=== PATIENT | male | born 1995 | race African-American/Black ===

== ENCOUNTER 2019-11-06 19:53 | Emergency (ER) | payer SELFPAY ==
[2019-11-06 20:06] VITALS: BP 144/74; PULSE 92; RESP 16; TEMP 40.2; O2SAT 97
[2019-11-06 20:09] VITALS: TEMP 40.3
[2019-11-06] MEDS: IBUPROFEN 400 MG TABLET 800 MG PO (20:09)
[2019-11-06] MEDS: ACETAMINOPHEN 500 MG TABLET PO (20:09)
--- NOTE | 2019-11-06 20:18 | ED.URI ---
HPI - URI/Sore Throat General Chief Complaint: Upper Respiratory Infection Stated Complaint: Flu symptoms Time Seen by Provider: 11/06/19 20:12 Source: patient, family and RN notes reviewed Mode of arrival: ambulatory Limitations: no limitations History of Present Illness HPI Narrative: Patient presents today complaining of headache, body aches, dizziness, chills, fever up to 103.5, cough. Symptoms began this morning and have worsened throughout the day. Denies congestion, rhinorrhea, sore throat. He has tried no medication for symptoms prior to arrival. He is a non-smoker. He did not receive a flu vaccine this season. elicited complaint: fever Related Data Home Medications Medication Instructions Recorded Confirmed No Home Medications 11/06/19 11/06/19 Allergies Allergy/AdvReac Type Severity Reaction Status Date / Time No Known Allergies Allergy Verified 11/06/19 20:02 Review of Systems Review of Systems: Narrative: CONSTITUTIONAL: + Body aches, chills, sweats, fever EYES: Denies visual changes, redness, or discharge. ENT: Denies rhinorrhea, congestion, sore throat, or otalgia. CARDIOVASCULAR: Denies chest pain, palpitations, or edema. RESPIRATORY: Denies dyspnea.+ Cough GASTROINTESTINAL: Denies abdominal pain, nausea, vomiting, or diarrhea. GENITOURINARY: Denies dysuria or hematuria. SKIN: Denies rash, itching, or wounds. MUSCULOSKELETAL: Denies back pain, joint pain, or myalgia. NEUROLOGIC: Denies numbness, tingling, or weakness.+ Headache, dizziness PSYCH: Denies depression or anxiety. PMFSH Comments At time of signature, I have reviewed and agree with nursing past medical, surgical, social and family history unless otherwise noted. Please see nursing chart for further information. There is no relevant family history pertinent to the presenting complaint Exam Narrative: Exam Narrative: GENERAL: ill-appearing, well-nourished, and in no acute distress. HEAD: Normocephalic, atraumatic. EYES: EOMI. No redness or drainage. Conjunctivae normal. ENT: Mucous membranes pink and moist. Nares clear. No rhinorrhea. TMs normal bilaterally. Throat normal. Uvula midline. NECK: Normal AROM. Supple. No lymphadenopathy. CHEST: No respiratory distress. Clear to auscultation. HEART: Regular rate and rhythm. No murmur appreciated. Normal peripheral pulses. EXTREMITIES: Normal range of motion. No edema. SKIN: Warm, dry, no rash. NEURO: No focal deficits. Alert and oriented x3. Gait steady. PSYCH: Normal affect. No signs of depression or anxiety. Course Vital Signs Vital signs: Vital Signs Temperature 104.3 F H 11/06/19 20:06 Pulse Rate 92 11/06/19 20:06 Respiratory Rate 16 11/06/19 20:06 Blood Pressure 144/74 H 11/06/19 20:06 Pulse Oximetry 97 11/06/19 20:06 Temperature 104.5 F H 11/06/19 20:21 Pulse Rate 92 11/06/19 20:06 Respiratory Rate 16 11/06/19 20:06 Blood Pressure 144/74 H 11/06/19 20:06 Pulse Oximetry 97 11/06/19 20:06 Reviewed. Pt has been instructed to follow up with his PCP regarding his elevated blood pressure today. Patient has been medicated with Tylenol and ibuprofen at [facility] today. MDM - URI/Sore Throat Differential Diagnosis Differential diagnosis: Likely upper respiratory infection, viral infection and influenza Lab Data Attestation: I reviewed the patient's lab results. Labs: Influenza A Screen Positive Reference Range: Negative Influenza B Screen Negative Reference Range: Negative Critical Care Time Critical Care Time Critical Care Time: No Discharge Plan Discharge Clinical Impression: Influenza A Patient Disposition: Home, Self-Care Condition: Stable Instructions: Influenza (DC) Additional Instructions: Your swab is positive for influenza A today. Please treat your fever and body aches with Tylenol and ibuprofen. You will be contagious for another 4 days. Follow-up wi
[2019-11-06 20:21] VITALS: TEMP 40.3
== END 2019-11-06 20:21 | disposition home or self-care (01) ==
PROVIDERS: Emergency Provider Nurse Practitioner
DX: J10.1 Influenza due to other identified influenza virus with other respiratory manifestations (principal)
CPT/HCPCS: 87804; 99202; A9270; G0463

== ENCOUNTER 2021-07-28 09:19 | Emergency (ER) | payer OTHER, SELFPAY ==
[2021-07-28 09:29] VITALS: BP 139/88; PULSE 57; RESP 16; TEMP 36.8; O2SAT 99
--- NOTE | 2021-07-28 09:51 | ED.LOWEXIN ---
HPI - Extremity Injury (Lower) General Chief Complaint: Extremity Injury, Lower Stated Complaint: Left leg Pain Time Seen by Provider: 07/28/21 09:54 Source: patient, RN notes reviewed and old records reviewed Mode of arrival: ambulatory Limitations: no limitations History of Present Illness HPI Narrative: 26-year-old male who presents to [facility] with complaints of discomfort to his left posterior thigh after playing basketball yesterday at the [facility] with feeling a pop like sensation in his upper posterior thigh. Patient states that 2-3 weeks ago he was playing basketball and felt a pop in his posterior proximal thigh and it did get better after awhile. Patient is able to ambulate on left leg with mild limp noted, able to bend hip and knee of left leg with no acute pain stated. Patient denies any tingling or numbness to is left leg or foot, strong pedal and posterior tibial pulses present to bilateral feet. MD complaint: thigh injury Onset (ago): day(s) (1) Injury: Left: thigh (posterior) Related Data Allergies Allergy/AdvReac Type Severity Reaction Status Date / Time No Known Allergies Allergy Verified 07/28/21 09:50 Review of Systems Review of Systems: CONSTITUTIONAL: Denies fever, chills, or sweats. EYES: Denies visual changes, redness, or discharge. ENT: Denies rhinorrhea, congestion, sore throat, or otalgia. CARDIOVASCULAR: Denies chest pain, palpitations, or edema. RESPIRATORY: Denies cough or dyspnea. GASTROINTESTINAL: Denies abdominal pain, nausea, vomiting, or diarrhea. GENITOURINARY: Denies dysuria or hematuria. SKIN: Denies rash or itching. MUSCULOSKELETAL: Denies back pain,positive for some posterior proximal left thigh discomfort. . NEUROLOGIC: Denies headache, numbness, or weakness. PSYCHIATRIC: Denies anxiety or depression. All systems reviewed & are unremarkable except as noted in HPI and below PMFSH Past Medical History Medical History (Updated 07/30/21 @ 14:49 by Nitza Huerta NP) Ganglion cyst No significant medical problems Surgical History Surgical History (Updated 07/30/21 @ 14:43 by Nitza Huerta NP) No history of previous surgery Family History Family History Mother Hypertension Father Hypertension Malignant neoplasm of prostate Sibling Hypertension Social History Social History (Updated 07/30/21 @ 14:37 by Nitza Huerta NP) Smoking status: Never smoker Alcohol intake: current Alcohol use details: social use Substance use: unknown Living arrangements: with family Gender identity (if verbalized by the patient): Male Comments At time of signature, agree with nursing past medical, surgical, social and family history. There is no relevant family history pertinent to the presenting complaint Exam Narrative: GENERAL: Well-appearing, well-nourished, and in no acute distress. HEAD: Normocephalic, atraumatic. EYES: PERRLA and EOMI. ENT: Nares clear, no rhinorrhea or epistaxis. Mucous membranes moist.TM's normal with good light reflex, throat pink with no exudates or lesions,no tonsil enlargement. NECK: Supple. no lymphadenopathy CHEST: Clear to auscultation. No respiratory distress.SAO2 99% on room air HEART: Regular rate and rhythm. No murmur heard. Normal peripheral pulses. ABDOMEN: Soft, nontender, nondistended, normal active bowel sounds. EXTREMITIES: Normal range of motion. No edema. Positive for some tenderness to left posterior proximal thigh region especially on palpation. Patient is able to bend hip and knee of left leg with no acute pain, states some increase in discomfort with ambulation, rates pain 8/10 described as shooting type of pain. SKIN: Warm, dry, no rash. NEURO: No focal deficits. Alert and oriented x3. Course Vital Signs Vital signs: Vital Signs Temperature 36.8 C 07/28/21 09:29 Pulse Rate 57 L 07/28/21 09:29 Respiratory Rate 16 07/28/21 09:29 Blood Pressure 139/8
== END 2021-07-28 10:20 | disposition home or self-care (01) ==
PROVIDERS: Emergency Provider Registered Nurse
DX: S76.912A Strain of unspecified muscles, fascia and tendons at thigh level, left thigh, initial encounter (principal); X58.XXXA Exposure to other specified factors, initial encounter; Y93.67 Activity, basketball
CPT/HCPCS: 99213; G0463

== ENCOUNTER 2022-02-15 05:06 | Day surgery (SDC) | payer SELFPAY ==
[2022-02-15] VITALS (12 sets, daily range): BP systolic 107–171; BP diastolic 53–116; PULSE 55–68; RESP 10–20; TEMP 36.6; O2SAT 96–100
--- NOTE | ~2022-02-15 | US_ITS ---
US scrotum doppler DATE: 02/15/2022 06:40 INDICATION: Right testicular torsion TECHNIQUE: Real-time and color flow imaging and Doppler analysis of the scrotal contents COMPARISON: None FINDINGS: The right testicle measures 5 x 3.6 x 2.6 cm. There is absence of vascularity to the right testicle compatible with right-sided testicular torsion. Left testicle measures 4.6 x 2.6 2.1 cm. There is left testicular blood flow. 1 cm right epididymal cyst. No hydrocele or varicocele is identified on either side. IMPRESSION: Right testicular torsion Reviewed, dictated and finalized at [facility] Reviewed, dictated and finalized at [facility] IMPRESSION: Right testicular torsion
[2022-02-15] MEDS: fentaNYL CITRATE INJ (*CRX) 100 MCG/2 ML VIAL IV PUSH ×2 (05:26→05:45)
[2022-02-15] MEDS: ONDANSETRON INJ 4 MG/2 ML VIAL IV PUSH (05:31)
--- NOTE | 2022-02-15 06:16 | ED.MALEGU ---
HPI - Male Genitourinary General Chief complaint: Urogenital-Male Stated complaint: right testicle pain Time Seen by Provider: 02/15/22 05:21 History of Present Illness HPI Narrative: 26-year-old male presents with sudden onset right testicular pain extremely severe, nausea and vomiting. Never had this in the past. Related Data Allergies Allergy/AdvReac Type Severity Reaction Status Date / Time No Known Allergies Allergy Verified 02/15/22 05:09 Review of Systems Review of Systems: CONST: No fever. HEENT: No sore throat C/V: No chest pain RESP: No difficulty breathing GI: nausea, vomiting BACK: No back pain : Right testicular pain. M/S: No joint pain. SKIN: No rash. NEURO: [No headache or focal numbness or weakness] PSYCH: [No depression] [facility] Past Medical History Medical History Ganglion cyst No significant medical problems Surgical History Surgical History No history of previous surgery Family History Family History Mother Hypertension Father Hypertension Malignant neoplasm of prostate Sibling Hypertension Social History Social History Smoking status: Never smoker Alcohol intake: current Alcohol use details: social use Substance use: unknown Gender identity (if verbalized by the patient): Male Exam Narrative: EXAMINATION OF ORGAN SYSTEMS/BODY AREAS: Constitutional: Vital signs per nursing GENERAL: Writhing in pain, retching HEAD: Normal with no signs of head trauma. EYES: EOMI, conjunctiva normal ENT: Hearing grossly intact LUNGS: Nonlabored breathing. HEART: [Regular rate and rhythm] ABD: [Soft], [nontender to palpation] EXT: Normal range of motion : Severe pain R testicle that is swollen and high riding and hard, no cremasteric reflex SKIN: [No rashes or lesions.] NEURO: [ No gross focal sensory or strength deficits.] Course Course Emergency Course: 36-year-old male presenting with severe right-sided testicular pain, vital signs stable, exam shows high riding swollen right testicle extremely concerning for torsion, I did immediately call the urologist and ultrasound, he is given pain medication and I did per urologist recommendation attempt to detorsed the testicle manually. This is unsuccessful, ultrasound did arrive and found torsion, urologist did arrive and will be taking the patient to the OR. Vital Signs Vital signs: Vital Signs Temperature 97.8 F 02/15/22 05:07 Pulse Rate 62 02/15/22 05:07 Respiratory Rate 20 02/15/22 05:07 Blood Pressure 140/116 H 02/15/22 05:07 Pulse Oximetry 100 02/15/22 05:07 Temperature 97.8 F 02/15/22 05:07 Pulse Rate 60 02/15/22 06:16 Respiratory Rate 16 02/15/22 06:16 Blood Pressure 150/94 H 02/15/22 06:16 Pulse Oximetry 100 02/15/22 06:16 Critical Care Time Critical Care Time Critical Care Time: Yes Total Critical Care Time: 31
--- NOTE | 2022-02-15 06:44 | PC.NURSE ---
Dr Bender in to see pt at bedside
--- NOTE | 2022-02-15 07:00 | P.PNAN_ITS ---
Anes - Eval Pre Procedure Procedure: Testicular Torsion reduction poss orchiectomy Date/Time: 02/15/22 07:00 Surgeon: Yulia Preop Diagnosis: Testicular Torsion Pre Op Diagnosis: right testicle pain Patient Data Age: 26 Gender: M Height: 1.75 m Weight: 81.8 kg Last Vital Signs Temp 97.8 F 02/15/22 05:07 Pulse 60 02/15/22 06:16 Resp 16 02/15/22 06:16 BP 150/94 H 02/15/22 06:16 Pulse Ox 100 02/15/22 06:16 Allergies Allergy/AdvReac Type Severity Reaction Status Date / Time No Known Allergies Allergy Verified 02/15/22 05:09 Home Medications Medication Instructions Recorded Confirmed Type cyclobenzaprine 10 mg PO HS PRN #10 tablet 07/28/21 Rx ibuprofen 600 mg PO Q6H PRN #20 tablet 07/28/21 Rx Patient hx anesthesia problems: none Family hx anesthesia problems: none Results Review: All pre-operative results and documents have been reviewed as part of the pre-operative evaluation. [facility] Past Medical History Medical History Ganglion cyst No significant medical problems Surgical History Surgical History No history of previous surgery Family History Family History Mother Hypertension Father Hypertension Malignant neoplasm of prostate Sibling Hypertension Social History Social History Smoking status: Never smoker Alcohol intake: current Alcohol use details: social use Substance use: unknown Gender identity (if verbalized by the patient): Male Exam Day of Procedure 02/15/22 07:00 Patient weight: overweight Heart: regular rate and rhythm Lungs: clear to auscultation Airway: Mallampati scale class II Neurological: alert and oriented
--- NOTE | 2022-02-15 07:13 | WPDURCON ---
Assessment and Plan Assessment and plan (1) Right testicular torsion: Code(s): N44.00 - Torsion of testis, unspecified Status: Acute Assessment and Plan: I will take him emergently to the operating room for a scrotal exploration bilateral orchidopexy. Possible right orchiectomy. He understands risks of bleeding, infection, loss of testicle. He agrees to proceed Urology Consult Note HPI Date Seen: 02/15/22 Requesting Physician: Hair Bender MD Primary Care Provider: CHRONIC DISEASE MANAGER PHYSICIAN Consult Narrative Narrative: Presley Kirkpatrick is a 26 year old male seen at the request of the emergency room at [facility]. He had acute onset of right testicular pain at about 430 this morning. It was associated with nausea and vomiting. He presented the emergency room. Scrotal ultrasound was done which shows absent flow in the right testicle. There is normal vascularity to the left. He be taken the operating room for a bilateral orchidopexy possible right orchiectomy. I let him know that right orchiectomy is unlikely, but possible, given the short amount of time since the onset of symptoms. Review of Systems Review of Systems: All systems reviewed & are unremarkable except as noted in HPI and below PMFSH Past Medical History Medical History Ganglion cyst No significant medical problems Surgical History Surgical History No history of previous surgery Family History Family History Mother Hypertension Father Hypertension Malignant neoplasm of prostate Sibling Hypertension Social History Social History Smoking status: Never smoker Alcohol intake: current Alcohol use details: social use Substance use: unknown Gender identity (if verbalized by the patient): Male Meds Home Medications and Allergies Home Medications Medication Instructions Recorded Confirmed Type cyclobenzaprine 10 mg PO HS PRN #10 tablet 07/28/21 Rx ibuprofen 600 mg PO Q6H PRN #20 tablet 07/28/21 Rx Allergies Allergy/AdvReac Type Severity Reaction Status Date / Time No Known Allergies Allergy Verified 02/15/22 05:09 Vital Signs Vital Signs - 24 hr 02/15/22 05:07 02/15/22 05:40 02/15/22 05:46 Temperature 97.8 F Pulse Rate 62 58 L 55 L Respiratory Rate 20 12 14 Blood Pressure 140/116 H 171/111 H 155/90 H Pulse Oximetry 100 100 96 02/15/22 06:16 Temperature Pulse Rate 60 Respiratory Rate 16 Blood Pressure 150/94 H Pulse Oximetry 100 Exam Const: General: cooperative, healthy appearing, acute distress and well groomed; No confusion Nutritional Appearance: average body habitus Orientation/consciousness: patient oriented x3 Limitations: no limitations HENMT: Head: normal to inspection Ears: hearing grossly normal bilaterally General nose exam: Normal external nose present Face and sinus: normal facial exam Mouth: Yes Normal oral and palatal mucosa present Eyes: General: appearance normal, both eyes and all related structures Neck: Neck: normal visual inspection and full ROM Resp: Effort & Inspection: normal respiratory effort, able to speak in complete sentences and no cough GI: Inspection: normal to inspection, non-distended and no incisions : Male General Exam: Yes normal external exam, No ecchymosis and No edema Penis: Yes normal penis, Yes circumcised and No edematous Meatus: meatus normal Scrotum: scrotum normal Testes: abnormal testicular lie (High riding right testicle), testicular tenderness and high-riding testicle Back/Spine/Pelvis: Back: no CVA tenderness Skin: General skin exam: normal color and no rashes or lesions noted Neuro: General: patient oriented x3, tone normal and moves all extremities Extrem: General: normal to i
--- NOTE | 2022-02-15 07:20 | WPDHPUPDATE1 ---
History and Physical Update Update Date/Time: 02/15/22 07:20 History and Physical has been reviewed, including an updated exam of the patient. There are NO changes in the patient's condition. Risks, benefits, and alternatives have been discussed and questions answered. Patient agrees to proceed with procedure.
[2022-02-15] MEDS: fentaNYL CITRATE INJ (*CRX) 100 MCG/2 ML VIAL 50 MCG IV PUSH (07:24)
--- NOTE | 2022-02-15 08:11 | P.PNAN_ITS ---
Anes - Initial Pre Proc Eval Procedure: Operation Date: 02/15/22 08:00 Proposed Procedures p Orchiopexy - Hair Bender MD Date/Time: 02/15/22 08:11 Surgeon: Hair Bender MD Pre Op Diagnosis: right testicle pain Patient Data Age: 26 Gender: M Height: 1.75 m Weight: 81.8 kg Last Vital Signs Temp 36.6 C 02/15/22 05:07 Pulse 59 L 02/15/22 07:22 Resp 20 02/15/22 07:22 BP 152/102 H 02/15/22 07:22 Pulse Ox 99 02/15/22 07:22 Allergies Allergy/AdvReac Type Severity Reaction Status Date / Time No Known Allergies Allergy Verified 02/15/22 05:09 Home Medications Medication Instructions Recorded Confirmed Type cyclobenzaprine 10 mg PO HS PRN #10 tablet 07/28/21 Rx ibuprofen 600 mg PO Q6H PRN #20 tablet 07/28/21 Rx Patient hx anesthesia problems: none Family hx anesthesia problems: none Results Review: All pre-operative results and documents have been reviewed as part of the pre-operative evaluation. [facility] Past Medical History Medical History Ganglion cyst No significant medical problems Surgical History Surgical History No history of previous surgery Family History Family History Mother Hypertension Father Hypertension Malignant neoplasm of prostate Sibling Hypertension Social History Social History Smoking status: Never smoker Alcohol intake: current Alcohol use details: social use Substance use: unknown Gender identity (if verbalized by the patient): Male Anes - Eval Final PreProcedure Day of Procedure 02/15/22 08:11 Patient weight: normal Heart: regular rate and rhythm Lungs: clear to auscultation Airway: Mallampati scale class 1 Neurological: alert and oriented Last oral intake: >/= 8 hours ASA classification: I Emergent: yes Anesthetic plan: proceed Anesthesia type and monitoring: general LMA and standard monitoring Results Review: All pre-operative results and documents have been reviewed as part of the pre-operative evaluation. Informed Consent: The patient's anesthetic plan and its attendant risks and benefits were discussed with the patient/family/POA. Questions were solicited and answers provided to the satisfaction of the patient/family/POA.
[2022-02-15] MEDS: ceFAZolin SODIUM 1 GM VIAL 2 GM IV PUSH (08:26)
[2022-02-15] MEDS: LACTATED RINGERS 1,000 ML 30 ML IV CONT (08:30)
[2022-02-15] MEDS: LIDO 1%/EPINEPHRINE/PF 1:200,000 30 ML VIAL XX (08:47)
--- NOTE | 2022-02-15 08:54 | P.OP_ITS ---
Procedure Note - Detailed Date of Procedure 02/15/22 Pre-op Diagnosis Right testicular torsion Post-op Diagnosis Same Procedure Performed Scrotal exploration with bilateral orchidopexy Surgeon Hair Bender MD Anesthesia General Indications This is a gentleman came to the ER with acute onset of right scrotal pain. Ultrasound documented no flow. He is urgently taken to the operating room for the above procedure. Understood risks of bleeding, infection, loss of testicle, other perioperative an intraoperative and postoperative complications. He agreed to proceed. Findings Right testicle twisted x2. Testicle appeared viable. Bilateral orchiopexy perf ormed Description of Procedure He has correctly identified. Informed consent obtained. From the operating room. He was given general anesthesia. He was placed in supine position. Penis and scrotum were prepped and draped in a sterile fashion. Time-out performed. I made incision on the midline scrotal raphae say. I dissected down through the dartos tissues. I entered the tunica and located the testicle. The testicle was dusky. There was 2 twists in the skin testicular cord. This was untwisted a by rotating the testicle counter-clockwise. I then wrapped the testicle in a moist Ray-Brittaney while I went to the contralateral hemiscrotum. I dissected out the dartos tissues and delivered the right testicle. It was viable and normal. I performed a left orchidopexy. I used permanent Ethibond suture. I pexed the testicle inferiorly, medially, laterally. I then turned my attention towards the right testicle. It appeared viable it it pinked up with reduction of the torsion. I pexed this testicle at the base of the scrotum as well as medial and laterally. Again I used a permanent Ethibond suture. I then closed dartos layer with a running 2-0 Vicryl suture. I closed the skin with a 4-0 Vicryl suture in a subcuticular manner. Local anesthesia was applied as well as the was awakened transferred to PACU in stable condition Estimated Blood Loss 1 Drains No Packing No Pathology None sent Complications No immediate complications Condition Stable Disposition PACU
[2022-02-15] MEDS: oxyCODONE HCL (*CRX) 5 MG TAB IR PO (09:58)
== END 2022-02-15 10:30 | disposition home or self-care (01) ==
LOC: ANHED 06:08 → ANHSURGERY 07:08
PROVIDERS: Emergency Provider Emergency Medicine; Visit Provider Urology
PROC: (CPT 54640; principal; 2022-02-15 08:00)
DX: N44.00 Torsion of testis, unspecified (principal)
CPT/HCPCS: 54640; 76870; 93976; 96374; 96375; 99285; A9270; J0690; J1100; J2001; J2060; J2250; J2270; J2405; J2704; J3010; J7120

== ENCOUNTER 2022-02-22 11:31 | Emergency (ER) | payer SELFPAY ==
--- NOTE | 2022-02-22 11:39 | ED.MALEGU ---
HPI - Male Genitourinary General Chief complaint: Urogenital-Male Stated complaint: painful genital area Time Seen by Provider: 02/22/22 11:39 Source: patient, RN notes reviewed and old records reviewed Mode of arrival: ambulatory Limitations: no limitations History of Present Illness HPI Narrative: 26-year-old male presents to the [facility] with complaints of painful genital area, was taken to surgery for testicular torsion 1 week ago 02/15. Surgery performed by Dr. Bender Since yesterday patient reports some increased discharge and pain, today had an increased of swelling to the area. Denies fevers. No abdominal pain or chest MD Complaint: testicle pain Related Data Allergies Allergy/AdvReac Type Severity Reaction Status Date / Time No Known Allergies Allergy Verified 02/15/22 05:09 Review of Systems Review of Systems: All systems reviewed & are unremarkable except as noted in HPI and below Constitutional: Constitutional: Reports no additional constitutional complaints, Denies chills and Denies fever(s) Eyes: Eyes: Reports no additional eye complaints ENT: Reports system reviewed and no additional complaints, except as documented Cardiovascular: Cardiovascular: Reports no additional cardiovascular complaints Respiratory: Respiratory: Reports no additional respiratory complaints Gastrointestinal: Gastrointestinal: Reports no additional gastrointestinal complaints and Denies abdominal pain Genitourinary: Genitourinary: Reports as per HPI, Reports genital pain, Reports scrotal swelling and Reports testicular pain Musculoskeletal: Musculoskeletal: Reports no additional musculoskeletal complaints Integumentary/Breasts: Skin/Breast: Reports system reviewed and no additional complaints, except as docu Neurologic: Reports system reviewed and no additional complaints, except as documented Psychiatric: Psychiatric: Reports no additional psychiatric complaints Allergic/Immunologic: Allergic/Immunologic: Reports no additional allergic/immunologic complaints [facility] Past Medical History Medical History (Updated 02/22/22 @ 12:06 by Bev Yeung APRN) Ganglion cyst No significant medical problems Right testicular torsion Surgical History Surgical History No history of previous surgery Family History Family History Mother Hypertension Father Hypertension Malignant neoplasm of prostate Sibling Hypertension Social History Social History Smoking status: Never smoker Alcohol intake: current Alcohol use details: social use Substance use: unknown Gender identity (if verbalized by the patient): Male Comments At the time of my signature, I reviewed and agree with the nursing past medical, surgical, social, and family history. There is no relevant family history pertinent to the patient complaint. Exam Const: General: healthy appearing, alert, acute distress (pain) mild, uncomfortable and well groomed Nutritional Appearance: well nourished Orientation/consciousness: patient oriented x3 Limitations: no limitations HENMT: Head: normal to inspection Ears: external ears normal Face and sinus: normal facial exam Eyes: Pupils: Equal, round and reactive pupils present Neck: Neck: normal visual inspection, no lymphadenopathy and no meningeal signs Chest: Chest palpation & inspection: normal inspection of the chest Resp: Effort & Inspection: normal respiratory effort and no use of accessory muscles Auscultation: clear to auscultation bilaterally, no crackles, no rales, no rhonchi and no wheezes Cardio: Rate: regular rate Rhythm: regular rhythm GI: GI Palp: Yes Soft to palpation and No Tenderness to palpation present (GI) : General: Yes no CVA tenderness Male General Exam: No ecchymosis Scrotum: scrotal swelling bilateral Testes
[2022-02-22 11:42] VITALS: BP 125/63; PULSE 56; RESP 16; TEMP 36.5; O2SAT 99
--- NOTE | 2022-02-22 12:00 | PC.NURSE ---
genital area visual exam done with internal review and audit compliance and rn at bedside. no open area noted at the time of exam. swelling noted and small amount of red drainage noted to dressing.
== END 2022-02-22 11:47 | disposition short-term general hospital (02) ==
LOC: EXPCOLL 11:37
PROVIDERS: Emergency Provider Nurse Practitioner
DX: N50.89 Other specified disorders of the male genital organs (principal); N50.812 Left testicular pain; N50.811 Right testicular pain
CPT/HCPCS: 99212; G0463

== ENCOUNTER 2022-02-22 12:07 | Emergency (ER) | payer SELFPAY ==
--- NOTE | ~2022-02-22 | US_ITS ---
EXAMINATION: US scrotum doppler DATE: 02/22/2022 13:12 INDICATION: Postoperative scrotal pain following surgery for testicular torsion TECHNIQUE: Testicular sonogram utilizing grayscale and Doppler COMPARISON: 02/15/2022 FINDINGS: The right testis measures 4.8 x 3.0 x 2.6 cm. The left testis measures 4.6 x 2.6 x 2.8 cm. Symmetric normal grayscale appearance to both testes. Relatively symmetric normal vascular flow to both testes with both arterial and venous waveforms identified in both the left and right testis. 1.2 cm anechoic right epididymal cyst. The right epididymis is otherwise normal with normal vascular flow. The left epididymis is normal with normal vascular flow. There is no varicocele or hydrocele. There is scrotal skin thickening. Hyperechoic shadowing likely surgical clip positioned in the scrotum near the midli ne between the 2 testis. IMPRESSION: 1. Expected appearance with normal symmetric grayscale appearance of the testis and symmetric vascul ar flow on color Doppler post recent surgery for prior right testicular torsion. Reviewed, dictated and finalized at location A. IMPRESSION: 1. Expected appearance with normal symmetric grayscale appearance of the testi s and symmetric vascular flow on color Doppler post recent surgery for prior ri ght testicular torsion.
[2022-02-22 12:09] VITALS: BP 146/79; PULSE 51; RESP 18; TEMP 36.2; O2SAT 100
--- NOTE | 2022-02-22 12:48 | ED.RECABL ---
HPI - Recheck/Abnormal Lab/Rx General Chief Complaint: Recheck/Abnormal Lab/Rx Stated Complaint: post surgery pain Time Seen by Provider: 02/22/22 12:19 Source: patient and RN notes reviewed Mode of arrival: ambulatory Limitations: no limitations History of Present Illness HPI narrative: This is a 26 year old male who presents for evaluation testicular pain and wound drainage s/p bilateral orchiopexy for right testicular torsion on 02/15/22. Patient had surgery by Dr. Bender on 02/15/22. He noticed some drainage to his testicular incision yesterday. He states he noticed dried blood with possible pus when he cleaned his wound yesterday. He also states he has worsening pain and swelling yesterday. Today his swelling has improved and he also states his pain has improved. He denies fever, nausea, vomiting. Related Data Allergies Allergy/AdvReac Type Severity Reaction Status Date / Time No Known Allergies Allergy Verified 02/15/22 05:09 Review of Systems Review of Systems: All systems reviewed & are unremarkable except as noted in HPI and below Constitutional: Constitutional: Denies chills and Denies fever(s) Cardiovascular: Cardiovascular: Denies chest pain Respiratory: Respiratory: Denies cough and Denies dyspnea Genitourinary: Genitourinary: Denies hematuria and Denies oliguria [facility] Past Medical History Medical History (Updated 02/22/22 @ 14:31 by Ariadna Cash MD) Ganglion cyst No significant medical problems Right testicular torsion Surgical History Surgical History (Updated 02/22/22 @ 12:53 by Ariadna Cash MD) S/P orchiopexy Family History Family History Mother Hypertension Father Hypertension Malignant neoplasm of prostate Sibling Hypertension Social History Social History Smoking status: Never smoker Alcohol intake: current Alcohol use details: social use Substance use: unknown Gender identity (if verbalized by the patient): Male Exam Const: General: no acute distress and alert Orientation/consciousness: patient oriented x3 HENMT: Head: normocephalic and atraumatic Mouth: Yes Normal oral and palatal mucosa present, Yes lip normal, Yes tongue normal and Yes moist mucous membranes Eyes: EOM: EOMs intact bilaterally Resp: Effort & Inspection: normal respiratory effort GI: GI Palp: Yes Soft to palpation, No Tenderness to palpation present (GI) and No Guarding due to palpation present (GI) Auscultation: normal bowel sounds : Penis: Yes normal penis and Yes uncircumcised Other: mid scrotal incision, scabbing along incision, small open area posteriorly, no drainage Neuro: General: patient oriented x3 and moves all extremities Extrem: General: normal to inspection Course Consultations Consultation #1: I spoke with urology international organizer. He states to have patient to perform wet to dry dressing. No oral antibiotics needed at this time. He will have office to call tomorrow to arrange follow up this week. Date: 02/22/22 Time: 14:28 Vital Signs Vital signs: Vital Signs Temperature 97.2 F L 02/22/22 12:09 Pulse Rate 51 L 02/22/22 12:09 Respiratory Rate 18 02/22/22 12:09 Blood Pressure 146/79 H 02/22/22 12:09 Pulse Oximetry 100 02/22/22 12:09 Temperature 97.2 F L 02/22/22 12:09 Pulse Rate 51 L 02/22/22 12:09 Respiratory Rate 18 02/22/22 12:09 Blood Pressure 146/79 H 02/22/22 12:09 Pulse Oximetry 100 02/22/22 12:09 MDM - Recheck/Abnormal Lab/Rx Medical Records Attestation: I reviewed the patient's medical records. Lab Data Attestation: I reviewed the patient's lab results. Result diagrams: 02/22/22 13:52 02/22/22 13:52 Labs: Lab Results 02/22/22 02/22/22 Range/Units 13:52 13:52 WBC 3.8 L (4.5-10.0) K/mm3 RBC 5.05 (4.6-6.20) M/mm3 Hgb 15.3 (14.0-18.0) g/
--- NOTE | 2022-02-22 13:15 | PC.NURSE ---
No drainage noted from scrotum wound when Dr. Cash assessed wound.
[2022-02-22 14:03] LABS: Basophils Percent Auto 0.8 % (0.2-1.2); Eosinophils Absolute Auto 0.1 K/mm3 (0-0.3); Eosinophils Percent Auto 2.1 % (0-4.4); Hematocrit 46.6 % (42.0-52.0); Hemoglobin 15.3 g/dL (14.0-18.0); Immature Granulocyte Absolute 0.01 K/mm3 (0.00-0.031); Immature Granulocyte Percent A 0.3 % (0-0.5); Lymphocytes Absolute Auto 1.71 K/mm3 (0.9-3.2); Lymphocytes Percent Auto 45.2 % (18.3-44.2); Mean Corpuscular HGB Conc 32.8 g/dl (32-36); Mean Corpuscular Hemoglobin 30.3 pg (26-34); Mean Corpuscular Volume 92.3 fl (80-100); Mean Platelet Volume 9.7 fl (7.4-10.4); Monocytes Absolute Auto 0.3 K/mm3 (0.1-0.6); Monocytes Percent Auto 8.7 % (2.6-8.5); Neutrophils Absolute Auto 1.6 K/mm3 (1.3-6.7); Neutrophils Percent Auto 42.9 % (45.5-73.1); Platelet Count Result 270 k/mm3 (150-375); Red Blood Count 5.05 M/mm3 (4.6-6.20); Red Cell Distribution Width 12.4 % (11.5-14.5); White Blood Count 3.8 K/mm3 (4.5-10.0)
[2022-02-22 14:17] LABS: Alanine Aminotransferase 17 U/L (6-50); Albumin Level 4.7 g/dL (3.5-5.1); Alkaline Phosphatase 65 U/L (38-126); Anion Gap 8 mmol/L (8-16); Aspartate Amino Transferase 29 U/L (17-59); Bilirubin,Total 0.7 mg/dL (0.2-1.3); Blood Urea Nitrogen 14 mg/dL (9-20); Carbon Dioxide 26 mmol/L (22-30); Chloride 102 mmol/L (98-107); Estimated CRCL calculation 84 ml/min; Estimated Glomerular Filt Rate > 60; Glucose 81 mg/dL (65-110); Potassium 4.3 mmol/L (3.4-5.0); Sodium 136 mmol/L (137-145)
== END 2022-02-22 15:12 | disposition home or self-care (01) ==
PROVIDERS: Emergency Provider General Practice
DX: Z48.00 Encounter for change or removal of nonsurgical wound dressing (principal)
CPT/HCPCS: 36415; 76870; 80053; 85025; 93976; 99284

== ENCOUNTER 2022-09-01 14:46 | Emergency (ER) | payer OTHER, SELFPAY ==
[2022-09-01 15:08] VITALS: BP 145/81; PULSE 69; RESP 16; TEMP 37.4; O2SAT 99
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
== END 2022-09-01 16:01 | disposition home or self-care (01) ==
PROVIDERS: Emergency Provider Nurse Practitioner Family
DX: R42 Dizziness and giddiness (principal); F12.90 Cannabis use, unspecified, uncomplicated
CPT/HCPCS: 99213; G0463

== ENCOUNTER 2023-03-29 09:26 | Emergency (ER) | payer OTHER, SELFPAY ==
--- NOTE | ~2023-03-29 | XR_ITS ---
EXAMINATION: XR shoulder LT min 2V INDICATION: Left shoulder pain TECHNIQUE: Four views of the left shoulder are submitted. COMPARISON: None FINDINGS: Normal alignment. No fracture. Glenohumeral and acromioclavicular joint spaces are normal. Soft tissues are unremarkable. IMPRESSION: 1. No acute osseous abnormality. Reviewed, dictated and finalized at location []
[2023-03-29 09:32] VITALS: BP 138/60; PULSE 71; RESP 16; TEMP 36.9; O2SAT 100
--- NOTE | 2023-03-29 09:57 | ED.UPPEXIN ---
HPI - Extremity Injury (Upper) General Chief Complaint: Extremity Injury, Upper Stated Complaint: Pain in left shoulder Time Seen by Provider: 03/29/23 09:56 Source: patient and RN notes reviewed Mode of arrival: ambulatory Limitations: no limitations History of Present Illness HPI narrative: 27-year-old male presents with concern for left shoulder injury. Reports while he was playing basketball yesterday it was hyperextended behind his back. He reports the pain is at the joint, it is not tender to touch, but hurts when he rotates the arm or elevates the arm. He applied ice yesterday. Denies taking [id number] medication. Denies decreased strength or sensation in the shoulder, arm MD complaint: injury to: left and shoulder Related Data Allergies Allergy/AdvReac Type Severity Reaction Status Date / Time No Known Allergies Allergy Verified 03/29/23 09:34 Review of Systems Review of Systems: CONSTITUTIONAL: Denies malaise, chills, sweats, or fever. SKIN: Denies rash or itching, open skin, laceration, abrasion, redness, warmth, swelling. MUSCULOSKELETAL: Reports left shoulder pain NEUROLOGIC: Denies numbness, weakness All systems reviewed & are unremarkable except as noted in HPI and below PMFSH Past Medical History Medical History Ganglion cyst No significant medical problems Right testicular torsion Surgical History Surgical History S/P orchiopexy Family History Family History Mother Hypertension Father Hypertension Malignant neoplasm of prostate Sibling Hypertension Social History Social History Smoking status: Never smoker Alcohol intake: current Alcohol use details: social use Substance use: unknown Living arrangements: with family Gender identity (if verbalized by the patient): Male Comments At time of signature, agree with nursing past medical, surgical, social and family history. There is no relevant family history pertinent to the presenting complaint Exam Narrative: GENERAL: Well-appearing, well-nourished, and in no acute distress. HEAD: Normocephalic, atraumatic. EYES: PERRLA, conjunctivae clear NECK: Supple. CHEST: Speaks in full sentences. No respiratory distress. HEART: Regular rate and rhythm. Normal and equal peripheral pulses. EXTREMITIES: Left shoulder has normal strength and sensation, limited range of motion. No edema or ecchymosis. 5/5 strength with shoulder abduction, adduction. Normal sensation with sensitivity to light touch and pain. No point tenderness. No open wounds, no skin tenting, no devitalized tissue or atrophy, no trophic changes, no obvious deformity, alignment normal, nearby joints and structures intact. Distal pulses palpable and equal bilaterally, skin warm, dry, pink. Capillary refill less than 3 seconds. SKIN: Warm, dry, no rash. NEURO: Alert and oriented x3. PSYCH: Normal mood and affect Course Course Emergency Course: Patient is aware of diagnosis, understands and agrees to treatment plan. Anticipatory guidance given. Patient agrees to follow-up as directed and is aware of reasons to seek care at the emergency department. Portions of this record may have been created with voice recognition software Level of Care: Express Care Visit Vital Signs Vital signs: Vital Signs Temperature 98.5 F 03/29/23 09:32 Pulse Rate 71 03/29/23 09:32 Respiratory Rate 16 03/29/23 09:32 Blood Pressure 138/60 03/29/23 09:32 Pulse Oximetry 100 03/29/23 09:32 Oxygen Delivery Room Air 03/29/23 09:32 Temperature 98.5 F 03/29/23 09:32 Pulse Rate 71 03/29/23 09:32 Respiratory Rate 16 03/29/23 09:32 Blood Pressure 138/60 03/29/23 09:32 Pulse Oximetry 100 03/29/23 09:32 Oxygen Delivery Room
== END 2023-03-29 10:08 | disposition home or self-care (01) ==
PROVIDERS: Emergency Provider Nurse Practitioner
DX: S43.402A Unspecified sprain of left shoulder joint, initial encounter (principal); X50.9XXA Other and unspecified overexertion or strenuous movements or postures, initial encounter; Y93.67 Activity, basketball
CPT/HCPCS: 73030; 99213; A4565; G0463

== ENCOUNTER 2024-03-21 14:39 | Emergency (ER) | payer OTHER, SELFPAY ==
[2024-03-21 14:49] VITALS: BP 132/80; PULSE 57; RESP 16; TEMP 37.5; O2SAT 99
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
== END 2024-03-21 15:20 | disposition home or self-care (01) ==
PROVIDERS: Emergency Provider Nurse Practitioner Family
DX: M79.672 Pain in left foot (principal)
CPT/HCPCS: 99213; G0463